=== PATIENT | female | born 2000 | race African-American/Black ===

== ENCOUNTER 2020-04-14 13:37 | Emergency (ER) | payer OTHER ==
--- OUTSIDE RECORDS SUMMARY | 2020-04-14 13:39 | XMS REPORT | Clinical Summary ---
:2000 Author Organization [facility] Address [address] [place] [address] Care Team Providers Name Role Phone Pcp Primary Care Provider Unavailable Allergies No Known Allergies Medications Not on file Active Problems Not on file Social History Tobacco Use Types Packs/Day Years Used Date Never Smoker Sex Assigned at Date Recorded Not on file Last Filed Vital Signs Not on file Plan of Treatment Health Maintenance Due Date Last Done Comments INFLUENZA VACCINE (#1) 2020 Results Not on fileafter 04/14/2019
--- OUTSIDE RECORDS SUMMARY | 2020-04-14 13:39 | XMS REPORT | Continuity of Care Document ---
:2000 Author Organization [facility] t Address [address] [place] [address] Care Team Providers Name Role Phone Pcp Primary Care Physician Unavailable Payers Payer Name Policy Type Policy Number Effective Date Expiration Date S ource Problems This patient has no known problems. Allergies, Adverse Reactions, Alerts Allergy Allergy Status Severity Reaction(s) Onset Inactive Treating Comm ents Source Name Type Date Date Clinician No Known DA Active U [facility] 05[facility]31 [facility] 00:00: [address] Social History Social Habit Start Date Stop Date Quantity Comments Source Sex Assigned At [facility] Smoking Status Start Date Stop Date Source Never smoker [facility] Medications This patient has no known medications. Procedures This patient has no known procedures. Plan of Care Planned Activity Planned Date Details Comments Source Future Scheduled 2020-01-24 [facility] [code = [facility] INFLUENZA VACCINE (#1)] Results Test Description Test Time Test Comments Results Result [facility] e Comments RAD, NASAL BONES, 2018-01-30 Reason for FINAL REPORT PATIENT MIN 3 VIEWS 19:12:00 exam:->hit with ID: [id number] volleyballpt c/o CLINICAL HISTORY: DUPONT after being hit Trauma and pain. 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 There is no acute fracture or malalignment. No radiopaque foreign body is present. The surrounding soft tissues are normal. IMPRESSION: No acute abnormality. Signed: Eulalio Zamorano Verified Date/Time: 01/30/2018 19:12:29 Reading Location: [address] Reading Room
[2020-04-14 14:36] LABS: Absolute Lymphocytes (CBC) 0.8 K/uL (0.7-4.9); Hematocrit 38.6 % (36.0-45.0); Lymphocytes % 15.8 % (15.3-44.8)
[2020-04-14] MEDS ORDERED: ONDANSETRON 4 MG/2 ML VIAL ONE (14:39)
[2020-04-14] MEDS ORDERED: NA CHLORIDE 0.9% 1,000 ML ONE (14:39)
[2020-04-14] MEDS ORDERED: DICYCLOMINE HCL 10 MG CAP ONE (14:39)
[2020-04-14 14:48] LABS: ALT/SGPT 14 U/L (12-78); AST/SGOT 10 U/L (15-37); Albumin 3.9 g/dL (3.4-5.0); Alkaline Phosphatase 54 U/L (45-117); BUN Blood Urea Nitrogen 7 mg/dL (7-18); Bicarbonate 25 mmol/L (21-32); Bilirubin Direct 0.1 mg/dL (0-0.2); Bilirubin Total 0.4 mg/dL (0.2-1.0); Glucose Level 103 mg/dL (74-106); Lipase 71 U/L (73-393); Magnesium 2.1 mg/dL (1.8-2.4); Potassium 3.6 mmol/L (3.5-5.1); Protein, Total 7.6 g/dL (6.4-8.2); Sodium Level 141 mmol/L (136-145)
[2020-04-14 15:35] LABS: Urine Blood 1+ (NEG); Urine Glucose NEGATIVE (NEG); Urine Protein NEGATIVE (NEG)
[2020-04-14] MEDS ORDERED: MORPHINE 2 MG/ML SYR ONE (15:45)
--- NOTE | 2020-04-14 16:02 | RAD REPORT ---
EXAM DESCRIPTION: CT - Abdomen Pelvis W Contrast - 04/14/2020 3:49 pm CLINICAL HISTORY: Abdominal pain COMPARISON: none. TECHNIQUE: Computed axial tomography of the abdomen pelvis was obtained. 100 cc Isovue-300 was admin istered intravenously. Oral contrast was not requested which limits evaluation of bowel. All CT scans are performed using dose optimization technique as appropriate and may include automated exposure control or mA/KV adjustment according to patient size. FINDINGS: The liver, spleen, pancreas, adrenal and kidneys appear unremarkable. There is no evidence of diverticulitis. Normal appendix. No adnexal mass. Small umbilical hernia IMPRESSION: No acute abnormality is displayed.
--- NOTE | 2020-04-14 16:12 | ER ---
Nurse's Notes [facility] Name: Norma Rosario Age: 20 yrs Sex: Female : 2000 Arrival Date: 04/14/2020 Time: 13:41 Bed 16 Private MD: Diagnosis: Nausea and vomiting;Diarrhea, unspecified Presentation: 04/14 13:45 Chief complaint: Patient states: Abd cramping with N/V/D started today. No fever. ll1 Coronavirus screen: Client denies travel out of the [place] in the last 14 days. diarrhea, fatigue, nausea, vomiting. Client presents with at least one sign or symptom that may indicate coronavirus-19. Standard/surgical mask placed on the client. Ebola Screen: Patient denies travel to an Ebola-affected area in the 21 days before illness onset. Initial Sepsis Screen: Does the patient meet any 2 criteria? No. Patient's initial sepsis screen is negative. Does the patient have a suspected source of infection? Yes: Acute abdominal pain. Risk Assessment: Do you want to hurt yourself or someone else? Patient reports no desire to harm self or others. Onset of symptoms was April 14, 2020. 13:45 Method Of Arrival: Ambulatory ll1 13:45 Acuity: CARLINE 3 ll1 Historical: - Allergies: 13:46 No Known Allergies; ll1 - PMHx: 13:46 None; ll1 - PSHx: 13:46 None; ll1 - Immunization history:: Flu vaccine is up to date. - Social history:: Smoking status: Patient denies any tobacco usage or history of. Screenin:30 Abuse screen: Denies threats or abuse. Nutritional screening: No deficits noted. em Tuberculosis screening: No symptoms or risk factors identified. Fall Risk None identified. Assessment: 14:30 General: Appears in no apparent distress. comfortable, Behavior is calm, cooperative, em appropriate for age, Denies fever. Pain: Complains of pain in abdomen. Neuro: Level of Consciousness is awake, alert, obeys commands, Oriented to person, place, time, situation. Cardiovascular: Capillary refill < 3 seconds Patient's skin is warm and dry. Respiratory: Airway is patent Respiratory effort is even, unlabored, Respiratory pattern is regular, symmetrical. GI: Abdomen is flat, Abd is soft and non tender X 4 quads. Reports lower abdominal pain, diarrhea, nausea. Derm: Skin is intact, is healthy with good turgor, Skin is pink, warm \T\ dry. Musculoskeletal: Range of motion: intact in all extremities. 15:30 Reassessment: Patient appears in no apparent distress at this time. Patient and/or em family updated on plan of care and expected duration. Pain level reassessed. Patient is alert, oriented x 3, equal unlabored respirations, skin warm/dry/pink. Patient states feeling better. 16:31 Reassessment: Patient appears in no apparent distress at this time. Patient and/or em family updated on plan of care and expected duration. Pain level reassessed. Patient is alert, oriented x 3, equal unlabored respirations, skin warm/dry/pink. Vital Signs: 13:45 BP 130 / 64; Pulse 87; Resp 16; Temp 98.4; Pulse Ox 99% ; Weight 78.47 kg; Height 5 ft. ll1 4 in. (162.56 cm); Pain 8/10; 15:33 BP 121 / 69; Pulse 75; Resp 18; Pulse Ox 98% on R/A; em 13:45 Body Mass Index 29.70 (78.47 kg, 162.56 cm) ll1 ED Course: 13:41 Patient arrived in ED. mr 13:46 Triage completed. ll1 13:46 Arm band placed on Patient placed in an exam room, on a stretcher. ll1 13:47 René Rosen PA is PHCP. cp 13:49 René Rosen PA is PHCP. cp 13:49 Tomasz Smiley MD is Attending Physician. cp 14:10 Yordan David, LINDSEY is Primary Nurse. em 14:14 Initial lab(s) drawn, by ak, sent to lab. Inserted saline lock: 20 gauge in left dh3 antecubital area, using aseptic technique. Blood collected. 14:30 Patient has correct armband on for positive identification. Call light in reach. Side em rails up X2. Adult w/ patient. Pulse ox on. NIBP on. 15:00 Urine collected: clean catch specimen, clear. em 15:49 CT Abd/Pelvis - IV Contrast Only In Process Unspecified. EDMS 16:30 No provider procedures requiring assistance completed. IV discontinued, intact, em bleeding controlled, No redness/swelling at site. Pressure dressing applied. Administered Medications: 14:28 Drug: Zofran (Ondansetron) 4 mg Route: IVP; Site: left antecubital; em 14:55 Follow up: Response: No adverse reaction; Marked relief of symptoms; Nausea is decreasedem 14:28 Drug: NS 0.9% 1000 ml Route: IV; Rate: 1 bolus; Site: left antecubital; em 15:30 Follow up: IV Status: Completed infusion; IV Intake: 1000ml em 14:57 Drug: Bentyl 20 mg Route: PO; em 15:30 Follow up: Response: No adverse reaction em 15:39 Drug: morphine 2 mg Route: IVP; Site: left antecubital; em 16:28 Follow up: Response: No adverse reaction; Marked relief of symptoms; Pain is decreased em Intake: 15:30 IV: 1000ml; Total: 1000ml. em Outcome: 16:12 Discharge ordered by MD. addis 16:30 Discharged to home ambulatory. em 16:30 Condition: improved 16:30 Discharge instructions given to patient, Instructed on discharge instructions, follow up and referral plans. medication usage, Demonstrated understanding of instructions, follow-up care, medications, Prescriptions given X 2. 16:31 Patient left the ED. em Signatures: Dispatcher [employer] Petra Ventura Edgar RN RN em René Rosen PA PA cp Herrera, Deanna [facility] Sandie Elizalde RN RN ll1
--- NOTE | 2020-04-14 16:12 | EDPHYS ---
Physician Documentation [facility] Name: Norma Rosario Age: 20 yrs Sex: Female : 2000 Arrival Date: 04/14/2020 Time: 13:41 Bed 16 Private MD: ED Physician Tomasz Smiley HPI: 04/14 14:10 This 20 yrs old Black Female presents to ER via Ambulatory with complaints of Abdominal cp Pain, Vomiting/Diarrhea. 14:10 The patient presents with abdominal pain that is diffuse. Onset: The symptoms/episode cp began/occurred this morning. The symptoms do not radiate. Associated signs and symptoms: Pertinent positives: nausea and vomiting, diarrhea, vaginal bleeding, Pertinent negatives: blood in stools, constipation, dysuria, fever. The symptoms are described as constant, crampy. Historical: - Allergies: 13:46 No Known Allergies; ll1 - PMHx: 13:46 None; ll1 - PSHx: 13:46 None; ll1 - Immunization history:: Flu vaccine is up to date. - Social history:: Smoking status: Patient denies any tobacco usage or history of. ROS: 16:15 Eyes: Negative for injury, pain, redness, and discharge. cp 16:15 Constitutional: Negative for body aches, chills, fever. 16:15 ENT: Negative for ear pain, sore throat, difficulty swallowing, difficulty handling secretions. 16:15 Cardiovascular: Negative for chest pain. 16:15 Respiratory: Negative for cough, shortness of breath, wheezing. 16:15 Abdomen/GI: Positive for abdominal pain, nausea, vomiting, and diarrhea, abdominal cramps, Negative for hematemesis, black/tarry stool, rectal bleeding. 16:15 : Positive for vaginal bleeding, Negative for urinary symptoms, flank pain. 16:15 All other systems are negative. Exam: 14:25 Constitutional: The patient appears in no acute distress, alert, awake, non-toxic, well cp developed, well nourished, uncomfortable. 14:25 Head/Face: Normocephalic, atraumatic. cp 14:25 Eyes: Periorbital structures: appear normal, Conjunctiva: normal, no exudate, no injection, Sclera: no appreciated abnormality, Lids and lashes: appear normal, bilaterally. 14:25 ENT: External ear(s): are unremarkable, Nose: is normal, Mouth: Lips: moist, Oral mucosa: moist, Posterior pharynx: Airway: no evidence of obstruction, patent. 14:25 Chest/axilla: Inspection: normal. 14:25 Cardiovascular: Rate: normal, Rhythm: regular. 14:25 Respiratory: the patient does not display signs of respiratory distress, Respirations: normal, no use of accessory muscles, no retractions, labored breathing, is not present, Breath sounds: are clear throughout, no decreased breath sounds, no stridor, no wheezing. 14:25 Abdomen/GI: Inspection: abdomen appears normal, Bowel sounds: active, all quadrants, Palpation: soft, in all quadrants, moderate abdominal tenderness, in all quadrants, rebound tenderness, is not appreciated, voluntary guarding, is elicited in all quadrants. 14:25 Back: CVA tenderness, is absent. Vital Signs: 13:45 BP 130 / 64; Pulse 87; Resp 16; Temp 98.4; Pulse Ox 99% ; Weight 78.47 kg; Height 5 ft. ll1 4 in. (162.56 cm); Pain 8/10; 15:33 BP 121 / 69; Pulse 75; Resp 18; Pulse Ox 98% on R/A; em 13:45 Body Mass Index 29.70 (78.47 kg, 162.56 cm) ll1 MDM: 13:50 Patient medically screened. cp 16:10 Data reviewed: vital signs, nurses notes, lab test result(s), radiologic studies, CT cp scan. Counseling: I had a detailed discussion with the patient and/or guardian regarding: the historical points, exam findings, and any diagnostic results supporting the discharge/admit diagnosis, lab results, radiology results, to return to the emergency department if symptoms worsen or persist or if there are any questions or concerns that arise at home. Response to treatment: the patient's symptoms have markedly improved after treatment, VSS. Patient sitting up on stretcher and appears more comfortable. 04/14 14:05 Order name: Basic Metabolic Panel; Complete Time: 14:50 cp 04/14 15:41 Interpretation: Normal except: CL 111. cp 04/14 14:05 Order name: CBC with Diff; Complete Time: 14:50 cp 04/14 14:05 Order name: Hepatic Function; Complete Time: 14:50 cp 04/14 14:05 Order name: Lipase; Complete Time: 14:50 cp 04/14 14:05 Order name: Magnesium; Complete Time: 14:50 cp 04/14 15:12 Order name: Urine Dipstick--Ancillary (enter results); Complete Time: 15:41 eb 04/14 14:05 Order name: IV Saline Lock; Complete Time: 14:23 cp 04/14 14:05 Order name: Labs collected and sent; Complete Time: 14:23 04/14 15:12 Order name: Urine --Ancillary (enter results); Complete Time: 15:41 eb 04/14 15:18 Order name: CT Abd/Pelvis - IV Contrast Only; Complete Time: 16:04 cp 04/14 16:05 Interpretation: Report reviewed. 04/14 14:05 Order name: Urine Dipstick-Ancillary (obtain specimen); Complete Time: 15:03 cp 04/14 14:05 Order name: Urine Test (obtain specimen); Complete Time: 15:03 04/14 14:51 Order name: PO challenge; Complete Time: 16:27 cp Administered Medications: 14:28 Drug: Zofran (Ondansetron) 4 mg Route: IVP; Site: left antecubital; em 14:55 Follow up: Response: No adverse reaction; Marked relief of symptoms; Nausea is decreasedem 14:28 Drug: NS 0.9% 1000 ml Route: IV; Rate: 1 bolus; Site: left antecubital; em 15:30 Follow up: IV Status: Completed infusion; IV Intake: 1000ml em 14:57 Drug: Bentyl 20 mg Route: PO; em 15:30 Follow up: Response: No adverse reaction em 15:39 Drug: morphine 2 mg Route: IVP; Site: left antecubital; em 16:28 Follow up: Response: No adverse reaction; Marked relief of symptoms; Pain is decreased em Disposition: 04/15 07:00 Co-signature as Attending Physician, Tomasz Smiley MD I agree with the assessment and kdr plan of care. Disposition: 04/14/20 16:12 Discharged to Home. Impression: Nausea and vomiting, Diarrhea, unspecified. - Condition is Stable. - Discharge Instructions: Food Choices to Help Relieve Diarrhea, Adult, Diarrhea, Adult, Nausea and Vomiting, Adult. - Prescriptions for Bentyl 20 mg Oral Tablet - take 1 tablet by ORAL route every 6 hours As needed; 30 tablet. Zofran 4 mg Oral Tablet - take 1 tablet by ORAL route every 12 hours As needed; 20 tablet. - Medication Reconciliation Form, Thank You Letter, Antibiotic Education, Prescription Opioid Use form. - Follow up: Private Physician; When: 1 - 2 days; Reason: Worsening of condition. - Problem is new. - Symptoms have improved. Signatures: Dispatcher [employer] EDTomasz Dickinson MD MD [facility] Yordan David RN RN em René Rosen PA PA Sandie Ruiz RN RN ll1 Corrections: (The following items were deleted from the chart) 04/14 16:31 16:12 04/14/2020 16:12 Discharged to Home. Impression: Nausea and vomiting; Diarrhea, em unspecified. Condition is Stable. Forms are Medication Reconciliation Form, Thank You Letter, Antibiotic Education, Prescription Opioid Use. Follow up: Private Physician; When: 1 - 2 days; Reason: Worsening of condition. Problem is new. Symptoms have improved. cp 23:51 04/13 16:15 Constitutional: Negative for body aches, chills, fever, cp cp 04/14 23:51 04/13 16:15 Eyes: Negative for injury, pain, redness, and discharge, cp cp 04/14 23:51 04/13 16:15 ENT: Negative for ear pain, sore throat, difficulty swallowing, difficulty cp handling secretions, cp 04/14 23:51 04/13 16:15 Cardiovascular: Negative for chest pain, cp cp 04/14 23:51 04/13 16:15 Respiratory: Negative for cough, shortness of breath, wheezing, cp cp 04/14 23:51 04/13 16:15 Abdomen/GI: Positive for abdominal pain, nausea, vomiting, and diarrhea, cp abdominal cramps, Negative for hematemesis, black/tarry stool, rectal bleeding, cp 04/14 23:51 04/13 16:15 : Positive for vaginal bleeding, Negative for urinary symptoms, flank cp pain, cp 04/14 23:51 04/13 16:15 All other systems are negative, cp cp
[2020-04-14 22:04] VITALS: TEMP 98.4
[2020-04-14 22:05] VITALS: BP 121/69; O2SAT 98
== END 2020-04-14 16:31 | disposition home or self-care (01) ==
LOC: ER 13:37
DX: R19.7 Diarrhea, unspecified (principal)
CPT/HCPCS: 96361; 85025; 80048; 36415; 83735; 81025; 80076; 81003; 83690; 74177; 96375; 96374; 99284; Q9967; J2270; J7030; J2405

== ENCOUNTER 2020-05-16 21:06 | Emergency (ER) | payer SELFPAY ==
--- OUTSIDE RECORDS SUMMARY | 2020-05-16 21:08 | XMS REPORT | Clinical Summary ---
:2000 Author Organization [facility] Address [address] [place] [address] Care Team Providers Name Role Phone Pcp, Primary Care Provider Unavailable Allergies No Known Allergies Medications Not on file Active Problems Not on file Social History Tobacco Use Types Packs/Day Years Used Date Never Smoker Sex Assigned at Date Recorded Not on file Last Filed Vital Signs Not on file Plan of Treatment Health Maintenance Due Date Last Done Comments INFLUENZA VACCINE (#1) 2020 Results Not on fileafter 05/16/2019
--- OUTSIDE RECORDS SUMMARY | 2020-05-16 21:08 | XMS REPORT | Continuity of Care Document ---
:2000 Author Organization [facility] t Address [address] [place] [address] Care Team Providers Name Role Phone Pcp Primary Care Physician Unavailable Payers Payer Name Policy Type Policy Number Effective Date Expiration Date S ource Problems This patient has no known problems. Allergies, Adverse Reactions, Alerts Allergy Allergy Status Severity Reaction(s) Onset Inactive Treating Comm ents Source Name Type Date Date Clinician No Known DA Active U [facility] 05-31 [facility] 00:00: [address] Social History Social Habit Start Date Stop Date Quantity Comments Source Sex Assigned At [facility] Smoking Status Start Date Stop Date Source Never smoker [facility] Medications This patient has no known medications. Procedures This patient has no known procedures. Plan of Care Planned Activity Planned Date Details Comments Source Future Scheduled 2020-01-24 INFLUENZA VACCINE [facility] - Test 00:00:00 (#1) [code = [facility] INFLUENZA VACCINE (#1)] Results Test Description Test Time Test Comments Results Result [facility] e Comments RAD, NASAL BONES, 2018-01-30 Reason for FINAL REPORT PATIENT MIN 3 VIEWS 19:12:00 exam:->hit with ID: [id number] volleyballpt c/o CLINICAL HISTORY: DUPONT after being hit Trauma and pain. 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 There is no acute fracture or malalignment. No radiopaque foreign body is present. The surrounding soft tissues are normal. IMPRESSION: No acute abnormality. Signed: Eulalio Zamorano Verified Date/Time: 01/30/2018 19:12:29 Reading Location: [address] Reading Room
--- NOTE | 2020-05-16 22:55 | ER ---
Nurse's Notes [facility] Name: Norma Rosario Age: 20 yrs Sex: Female : 2000 Arrival Date: 05/16/2020 Time: 21:07 Bed External Waiting Private MD: Diagnosis: Presentation: 05/16 21:18 Chief complaint: Patient states: N/V for 5 days. Heavy vaginal bleeding since Thursday. ll1 No fever. Coronavirus screen: Client denies travel out of the [place] in the last 14 days. nausea, vomiting. Client presents with at least one sign or symptom that may indicate coronavirus-19. Standard/surgical mask placed on the client. Ebola Screen: Patient denies travel to an Ebola-affected area in the 21 days before illness onset. Initial Sepsis Screen: Does the patient meet any 2 criteria? No. Patient's initial sepsis screen is negative. Does the patient have a suspected source of infection? No. Patient's initial sepsis screen is negative. Risk Assessment: Do you want to hurt yourself or someone else? Patient reports no desire to harm self or others. Onset of symptoms was May 11, 2020. 21:18 Method Of Arrival: Ambulatory ll1 21:18 Acuity: CARLINE 3 ll1 Historical: - Allergies: 21:20 No Known Allergies; ll1 - PMHx: 21:20 None; ll1 - PSHx: 21:20 None; ll1 - Immunization history:: Flu vaccine is not up to date. - Social history:: Smoking status: Patient denies any tobacco usage or history of. Vital Signs: 21:18 BP 129 / 72; Pulse 77; Resp 17; Temp 98.4; Pulse Ox 100% ; Weight 73.48 kg; Height 5 ll1 ft. 4 in. (162.56 cm); Pain 9/10; 21:18 Body Mass Index 27.81 (73.48 kg, 162.56 cm) ll1 ED Course: 21:07 Patient arrived in ED. rg4 21:18 Arm band placed on. ll1 21:20 Triage completed. ll1 22:46 Patient's name was called from ER lobby. No response. Unable to locate patient. Will sg disposition as left without being seen by a provider. Administered Medications: No medications were administered Outcome: 22:55 Patient left the ED. sg Signatures: Hong, Sebastian, RN RN sg Mecca Rosen rg4 Sandie Elizalde, RN RN ll1
[2020-05-16 23:07] VITALS: BP 129/72; TEMP 98.4; O2SAT 100
== END 2020-05-16 22:55 | disposition left against medical advice (07) ==
LOC: ER 21:06
DX: Z53.21 Procedure and treatment not carried out due to patient leaving prior to being seen by health care provider (principal)
CPT/HCPCS: 99281